=== PATIENT | male | born 1990 | race Caucasian/White ===

== ENCOUNTER 2023-04-28 11:27 | Outpatient (CLI) | payer BC, SELFPAY | END 2023-04-28 11:28 | PROVIDERS: PCP Emergency Medicine; Visit Provider Emergency Medicine | DX: M25.562 Pain in left knee (principal) | CPT/HCPCS: 73564 ==

== ENCOUNTER 2023-05-14 07:56 | Outpatient (RCR) | payer BC, SELFPAY ==
--- NOTE | 2023-05-06 09:06 | PCPTNOTE ---
Patient called & cancelled scheduled appointment this date due to being sick. He has been rescheduled.
--- NOTE | 2023-05-14 11:35 | PTOPEVAL1 ---
Assessment and note entered by Nela Pang, PT, DPT Evaluation Information Assessment Status Evaluation Diagnosis L knee pain Onset 1 year Subjective Information Pt reports a painful pop on the inside his knee about a year ago while golfing. He states he did not get any pain or swelling after the pop but it would pop periodically. Within the last couple of months he was doing a jump rope work out, and without feeling a pop it got painful and swelled. He utilized RICE and it got better. He states another time, he was standing still for a couple of hours and after that evening he has some pain and swelling as well. He has since altered his golf swing to avoid the position that causes pain. 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 Reported Pain Level Pain Score 0: Self Report Assessment PT Clinical Summary Osvaldo presents to therapy today for his initial evaluation with a diagnosis of L knee pain. He demonstrates signs and symptoms consistent with medial meniscus involvement. He demonstrates great strength and stability reema throughout his hips, ankles, and knees. It was recommended that he continue with his current workout regimen; he demonstrates good form with these exercises, and will plan to follow up with referring provider about getting an MRI. Plan of Care PT Services Indicated Yes Treatment Frequency and pending MRI results Duration These treatments will address the objective and functional deficits as defined above. The patient will be advanced safely and appropriately in order for the patient to progress towards his/her prior level of function. Additional exercises will be introduced and as well as a comprehensive home exercise program upon discharge, if needed, ?to ensure carryover of functional gains achieved in the clinic. This treatment plan has been reviewed and agreement upon by the patient.
--- NOTE | 2023-08-11 14:40 | PTOPDC ---
Assessment and note entered by Ela Damon DPT Evaluation Information Assessment Status Discharge - Pt Not Present Diagnosis L knee pain Onset 1 year Subjective Information - Assessment PT Clinical Summary The patient has not attended therapy since 05/14/23 . He will be discharged this date. Plan of Care PT Services Indicated No
== END 2023-08-11 15:19 | disposition home or self-care (01) ==
LOC: ANHGOSHPT 07:56
PROVIDERS: PCP Emergency Medicine; Visit Provider Emergency Medicine
DX: M25.562 Pain in left knee (principal); M23.305 Other meniscus derangements, unspecified medial meniscus, unspecified knee
CPT/HCPCS: 97110; 97161

== ENCOUNTER 2023-05-14 08:43 | Outpatient (CLI) | payer BC, SELFPAY ==
[2023-05-14 12:18] LABS: Basophils Absolute Auto 0.1 K/mm3 (0.0-0.1); Eosinophils Absolute Auto 0.1 K/mm3 (0-0.3); Eosinophils Percent Auto 2.3 % (0-4.4); Hematocrit 48.7 % (42.0-52.0); Hemoglobin 16.2 g/dL (14.0-18.0); Immature Granulocyte Absolute 0.01 K/mm3 (0.00-0.031); Immature Granulocyte Percent A 0.2 % (0-0.5); Lymphocytes Absolute Auto 1.77 K/mm3 (0.9-3.2); Lymphocytes Percent Auto 34.1 % (18.3-44.2); Mean Corpuscular HGB Conc 33.3 g/dl (32-36); Mean Corpuscular Volume 93.3 fl (80-100); Mean Platelet Volume 9.9 fl (7.4-10.4); Monocytes Absolute Auto 0.5 K/mm3 (0.1-0.6); Monocytes Percent Auto 9.6 % (2.6-8.5); Neutrophils Absolute Auto 2.7 K/mm3 (1.3-6.7); Neutrophils Percent Auto 52.8 % (45.5-73.1); Platelet Count Result 257 k/mm3 (150-375); Red Blood Count 5.22 M/mm3 (4.6-6.20); Red Cell Distribution Width 12.6 % (11.5-14.5); White Blood Count 5.2 K/mm3 (4.5-10.0)
[2023-05-14 12:28] LABS: Alanine Aminotransferase 26 U/L (6-50); Albumin Level 4.7 g/dL (3.5-5.1); Alkaline Phosphatase 47 U/L (38-126); Anion Gap 7 mmol/L (4-12); Aspartate Amino Transferase 55 U/L (17-59); Bilirubin,Total 0.6 mg/dL (0.2-1.3); Blood Urea Nitrogen 21 mg/dL (9-20); Calcium 9.4 mg/dL (8.4-10.2); Carbon Dioxide 29 mmol/L (22-30); Chloride 103 mmol/L (98-107); Cholesterol 162 mg/dL (0-200); Estimated Glomerular Filt Rate 60; Glucose 93 mg/dL (65-110); HDL Direct 46 mg/dL; Potassium 3.8 mmol/L (3.4-5.0); Sodium 139 mmol/L (137-145); Triglycerides 87 mg/dL (<150)
[2023-05-14 12:39] LABS: LDL Cholesterol Direct 87 mg/dL
[2023-05-18 12:07] LABS: Testosterone Total 694 ng/dL (250-1100)
== END 2023-05-14 08:44 | disposition home or self-care (01) ==
LOC: ANHGOSHLAB 08:44
PROVIDERS: PCP Emergency Medicine; Visit Provider Emergency Medicine
DX: Z00.00 Encounter for general adult medical examination without abnormal findings (principal); R53.83 Other fatigue; Z13.220 Encounter for screening for lipoid disorders; Z13.1 Encounter for screening for diabetes mellitus
CPT/HCPCS: 36415; 80053; 80061; 83036; 84403; 84443; 85025